=== PATIENT | male | born 1975 | race Caucasian/White ===

== ENCOUNTER 2017-08-27 10:05 | Day surgery (SDC) | payer BC ==
[2017-08-25 13:32] VITALS: BMI 28.0
[~2017-08-27 10:05] MED LIST: LACTATED RINGERS 1,000 ML IV SCH
[2017-08-27 10:49] VITALS: RESP 16; TEMP 97.4
[2017-08-27] MEDS ORDERED: LIDOCAINE 1% 20 ML VIAL (10MG/ML) FOR IV START INTRADERMA ONE (10:49)
[2017-08-27 11:04] LABS: Basophils # (A) 0.1 k/uL (0-0.2); Basophils % (A) 1 %; Eosinophils # (A) 0.4 k/uL (0-0.7); Eosinophils % (A) 3 %; HCT 34.5 % (39.0-53.0); HGB 10.1 gm/dL (13.0-17.5); Hypochromasia Marked; Lymphocytes # (A) 2.3 k/uL (1.0-4.8); Lymphocytes % (A) 19 %; MCH 21.3 pg (25.0-35.0); MCHC 29.1 g/dL (31.0-37.0); MCV 73.1 fL (80.0-100.0); Mean Platelet Volume 6.6; Microcytosis Slight; Monocytes % (A) 9 %; Neutrophils # (A) 7.8 k/uL (1.3-7.7); Neutrophils % (A) 65 %; Platelet Count 671 k/uL (150-450); RBC 4.72 m/uL (4.30-5.90)
[2017-08-27 11:15] LABS: ALT 53 U/L (21-72); AST 68 U/L (17-59); Albumin 4.2 g/dL (3.5-5.0); Alkaline Phosphatase 203 U/L (38-126); Anion Gap 13 mmol/L; Blood Urea Nitrogen 14 mg/dL (9-20); C Reactive Protein 34.4 mg/L (<10.0); Calcium 9.6 mg/dL (8.4-10.2); Carbon Dioxide 25 mmol/L (22-30); Chloride 103 mmol/L (98-107); Glucose 81 mg/dL (74-99); Potassium 4.1 mmol/L (3.5-5.1); Sodium 141 mmol/L (137-145); Total Bilirubin 0.6 mg/dL (0.2-1.3)
[2017-08-27] MEDS ORDERED: fentaNYL (PF) 50 MCG/ML 2 ML AMP ONE (11:34)
[2017-08-27] MEDS ORDERED: PROPOFOL 10 MG/ML 20 ML VIAL IV ONE (11:34)
[2017-08-27] MEDS ORDERED: LIDOCAINE 1% INJ 10MG/ML (20 ML MDV) ONE (11:34)
[2017-08-27 12:36] VITALS: BP 126/74; PULSE 82
--- NOTE | 2017-08-27 13:14 | P.PCN ---
Date of Procedure: 08/27/17 Procedure(s) Performed: BRIEF HISTORY: Patient is a 42-year-old pleasant white male scheduled for an elective colonoscopy as a part of surveillance for history of ulcerative colitis diagnosed in 2012. His last colonoscopy was done by Dr. Dr. Freire in December 2016 and was noted to have multiple pseudopolyps in the sigmoid colon and one large polyp that was removed by snare polypectomy biopsies of which showed tubular adenoma with high-grade dysplasia. He has been maintained on Lialda 3 tablets daily. Lately has been having complaining of left lower quadrant abdominal pain with diarrhea and back pain have been progressively getting worse. After reviewing the records of the previous colonoscopy with biopsy results and recommended depending a colonoscopy to evaluate the sigmoid polyp. PROCEDURE PERFORMED: Colonoscopy with multiple random biopsies. PREOPERATIVE DIAGNOSIS: History of ulcerative colitis diagnosed in 2012, last colonoscopy December 2016 showing multiple pseudopolyps/polyp in the sigmoid colon. IV sedation per Anesthesia. PROCEDURE: After informed consent was obtained, the patient, was brought into the endoscopy unit. IV sedation was administered by Anesthesia under continuous monitoring. Digital rectal examination was normal. Initially the Olympus CF- 160 flexible video colonoscope was then inserted in the rectum, gradually advanced into the sigmoid colon. There was a circumferential polypoid area ulcer identified and the scope could not be advanced further because of significant narrowing in this area. Scope was removed and a. Colonoscopy was then introduced into the rectum and was advanced into the sigmoid colon where there was a polypoid lesion identified which was occupying the entire lumen. With gentle manipulation I was able to slowly advance the scope proximally and into the cecum without any difficulty. Careful examination was performed as the scope was gradually being withdrawn. Ileocecal valve and the appendiceal orifice were visualized and appeared normal. Prep was excellent. Mucosa of the cecum, ascending colon, transverse colon, descending colon, appeared normal however there was changes with scattered diverticula and scarring consistent with a quite sent colitis. Multiple random biopsies were done from these areas. In the distal sigmoid colon extending from 30-37 cm from the anal verge there was stricture identified with inflamed mucosa, friability noted and biopsies were done from this area. From 25-30 cm from the anal verge, there was circumferential polypoid area identified and multiple biopsies were done from this segment of the colon. There was another polyp noted at 20 cm from the anal verge which was also biopsied. The rectum appeared normal. Retroflexion was performed in the rectum and no lesions were seen. The patient tolerated the procedure well. IMPRESSION: 1. Circumferential polypoid lesion in the distal sigmoid colon exceeding from 25-30 cm from the anal verge causing almost complete obstruction status post multiple biopsies to rule out neoplasm 2. Tight sigmoid stricture just proximal to the polypoid lesion extended from 30-37 cm from the anal verge with severe inflammation consistent with active colitis, status post biopsies to rule out malignant stricture 3. Rest of the colon had no active colitis. RECOMMENDATIONS: Findings of this examination were discussed with the patient as well as his family. At this family with the biopsy results and the patient will be seen in office in 4-5 days. I did discuss with him about surgical consultation with a colorectal surgeon in tertiary center.
--- NOTE | 2017-09-06 07:29 | CDI ---
Outpatient Documentation Clarification Form Date: 09/02/2017 CDS/Wafer Cleaner Name: Arun Irving Phone: If any questions, call Karen Ferguson Counter Checker at [phone] Patient Name: Jerry Sauer Admit Date: 08/27/2017 Discharge Date: 08/27/2017 ATTENTION: The [facility] Coding Staff appreciate your assistance in clarifying documentation. Please respond to the clarification below the line at the bottom and electronically sign. The [facility] Coding staff will review the response and follow-up if needed. Please note: Queries are made part of the Legal Health Record. If you have any questions, please contact the Counter Checker. Dear Dr. Banks, Operative report states colonoscopy with random biopsies were performed at distal sigmoid colon extending from 30-37cm from the anal verge , a biopsy from 25-30 cm from anal verge, another polyp at 20 cm from anal verge was biopsied. Based on your clinical opinion please mentions where these polyps were located since 30-37 cm and 25-30 cm and 20cm from anal verge could not locate the anatomical site of colon polyp. Biopsies were done from polypoid lesion from 25-30 cm which is located in sigmoid colon. Biopsies were done from the sigmoid stricture 30-37 cm from anal verge, This is not a polyp, only sigmoid stricture stricture Polyp at 20 cm is distal sigmoid polyp Hope this answers the question MTDD
== END 2017-08-27 13:22 | disposition home or self-care (01) ==
LOC: ORWHC2ENDO 10:05
PROVIDERS: ATTEND Internal Medicine Gastroenterology
DX: C18.7 Malignant neoplasm of sigmoid colon (principal); K56.699 Other intestinal obstruction unspecified as to partial versus complete obstruction; K57.30 Diverticulosis of large intestine without perforation or abscess without bleeding; K51.90 Ulcerative colitis, unspecified, without complications; Z86.010 Personal history of colon polyps; Z79.899 Other long term (current) drug therapy; Z79.1 Long term (current) use of non-steroidal anti-inflammatories (NSAID)
CPT/HCPCS: 45380; 80053; 85025; 86140; 88305